=== PATIENT | male | born 1950 | race Caucasian/White ===

== ENCOUNTER 2021-11-14 14:47 | Emergency (ER) | payer MEDICARE, SELFPAY ==
[2021-11-14 15:50] VITALS: BP 196/82; PULSE 50; RESP 16; TEMP 36.7; O2SAT 98; BMI 25.7
--- NOTE | 2021-11-14 16:41 | ED_ITS ---
HPI - Male Genitourinary General: Chief complaint: Urogenital-Male Stated complaint: back/abd pain; bloody urine Time Seen by Provider: 11/14/21 15:58 Source: patient Mode of arrival: ambulatory Limitations: no limitations History of Present Illness: 71-year-old male presents to the emergency room with complaint of back pain abdominal pain bloody urine difficulty urinating for the last several days. Expect nearly 12 hours since he last urinated is complaining some flank pain and suprapubic discomfort. He has had dysuria and urgency as well denies any fever sweats or chills. Hematuria is been ongoing for the last couple of days. Onset (ago): day(s) Duration: constant Location: right flank and left flank Radiation: right inguinal region and left inguinal region Severity: moderate Quality: aching Relieving factors: none Exacerbating factors: none Associated symptoms: Reports dysuria and hematuria; Deny discharge, fevers/chills, nausea, rash, swelling, urinary incontinence, urinary retention, mass or vomiting Review of Systems Const: Denies: fever(s), chills, body aches, change in appetite, fatigue or malaise ENMT: Denies: throat pain, ear or mastoid pain, nasal discharge or nasal congestion Card: Denies: chest pain, palpitations, irregular heart rhythm, edema, dyspnea on exertion or orthopnea Resp: Denies: dyspnea, productive cough, non-productive cough or wheezing GI: Denies: nausea or vomiting : Reports: flank pain, difficulty urinating, dysuria, difficulty starting urination and hematuria; Denies: urinary incontinence Skin/Breast: Denies: rash or pruritus PFSH ED PFSH: Medical History (Updated 11/22/21 @ 18:13 by Jaswinder Arciniega DO) Atrial fibrillation COPD (chronic obstructive pulmonary disease) Hypertension Social History (Updated 11/22/21 @ 18:14 by Jaswinder Arciniega DO) Alcohol intake: unknown Physical Exam Const: GENERAL APPEARANCE: cooperative and comfortable ORIENTATION/CONSCIOUSNESS: Yes awake, Yes oriented to person, Yes oriented to place and Yes oriented to time HENMT: COMMON NORMALS: normocephalic, atraumatic and hearing grossly normal bilaterally HEAD & SCALP: normocephalic and atraumatic Neck/C-Spine: COMMON NORMALS: no JVD Resp: COMMON NORMALS: normal respiratory effort, No retractions, No use of accessory muscles and clear to auscultation bilaterally AUSCULTATION: clear to auscultation bilaterally Cardio: COMMON NORMALS: no JVD, regular rate, regular rhythm and No murmurs present (Cardio) RATE: regular rate RHYTHM: regular rhythm GI: COMMON NORMALS: Soft to palpation and No hepatosplenomegaly present AUSCULTATION: Yes normoactive bowel sounds PALPATION: Yes Soft to palpation, No Tenderness to palpation present (GI), No Guarding due to palpation present (GI) and Yes No hepatosplenomegaly present : BLADDER/KIDNEY EXAM: Yes CVA tenderness bilateral (Mild) Back/Pelvis: GENERAL BACK: Yes CVA tenderness Extremity: COMMON NORMALS: normal to inspection, capillary refill normal, no clubbing, cyanosis or edema, no calf tenderness and no pedal edema Neuro: SENSORIUM/ORIENTATION: Yes oriented to person, Yes oriented to place and Yes oriented to time Skin: COMMON NORMALS: no rashes or lesions noted GENERAL SKIN EXAM: no rashes or lesions noted Course Vital Signs: Vital signs: Vital Signs Temperature 98.1 F 11/14/21 15:50 Pulse Rate 54 L 11/14/21 18:20 Respiratory Rate 16 11/14/21 18:20 Blood Pressure 194/93 11/14/21 18:20 Pulse Oximetry 98 11/14/21 18:20 MDM - Male Medical Decision Making Prostatitis with hematuria started on Bactrim follow-up with urology. Hemoglobin normal. Medical Records I reviewed the patient's medical records. Lab Data I reviewed the patient's lab results. : 11/14/21 16:32 11/14/21 16:32 Laboratory Results WBC 7.5 10^3/uL (4.0-10.0) 11/14/21 16:32 RBC 4.89 10^6/uL (4.1-5.3) 11/14/21 16:32 Hgb 15.3 g/dL (11.7-16.6) 11/14/21 16:32 Hct 44.8 % (42.0-52.0) 11/14/21 16:32 MCV 91.6 fl (80-94) 11/14/21 16:32 MCH 31.3 pg (28.0-34.0) 11/14/21 16:32 MCHC 34.2 g/dL (30.0-36.0) 11/14/21 16:32 RDW 14.2 % (12.1-15.1) 11/14/21 16:32 Plt Count 220 10^3/cmm (130-400) 11/14/21 16:32 MPV 11.4 fL (7.4-10.4) H 11/14/21 16:32 Neut % (Auto) 75.3 % 11/14/21 16:32 Lymph % (Auto) 15.0 % 11/14/21 16:32 [place] % (Auto) 7.6 % 11/14/21 16:32 Eos % (Auto) 1.3 % 11/14/21 16:32 Baso % (Auto) 0.5 % 11/14/21 16:32 Neut # (Auto) 5.67 10^3/uL (1.8-7.7) 11/14/21 16:32 Lymph # (Auto) 1.1 10^3/uL (0.8-4.8) 11/14/21 16:32 [place] # (Auto) 0.6 10^3/uL (0.2-0.9) 11/14/21 16:32 Eos # (Auto) 0.1 10^3/uL (0.0-0.8) 11/14/21 16:32 Baso # (Auto) 0.0 10^3/uL (0.0-0.1) 11/14/21 16:32 Nucleated RBC % (auto) 0 % 11/14/21 16:32 Nucleated RBCs # 0.0 /100WBC 11/14/21 16:32 PT 13.10 SECONDS (12.1-14.9) 11/14/21 16:32 INR 0.96 (0.8-1.2) 11/14/21 16:32 APTT 33.4 SECONDS (23.9-36.7) 11/14/21 16:32 Sodium 138 mmol/L (136-145) 11/14/21 16:32 Potassium 4.2 mmol/L (3.5-5.1) 11/14/21 16:32 Chloride 101 mmol/L (98-107) 11/14/21 16:32 Carbon Dioxide 24 mmol/L (22-29) 11/14/21 16:32 Anion Gap 17.2 (5-19) 11/14/21 16:32 BUN 14 mg/dL (8-23) 11/14/21 16:32 Creatinine 0.9 mg/dL (0.7-1.2) 11/14/21 16:32 GFR Calculation 83.7 mL/min (90-130) L 11/14/21 16:32 Glucose 145 mg/dL (65-115) H 11/14/21 16:32 Calculated Osmolality 289 mOsm/kg (285-295) 11/14/21 16:32 Calcium 9.5 mg/dL (8.5-10.5) 11/14/21 16:32 Urine Color Dark yellow (Yellow) 11/14/21 17:15 Urine Appearance Cloudy (CLEAR) 11/14/21 17:15 Urine pH 5 (5-7) 11/14/21 17:15 Ur Specific [place] 1.015 (1.005-1.030) 11/14/21 17:15 Urine Protein 1+ (Negative) H 11/14/21 17:15 Urine Glucose (UA) Norm (Normal) 11/14/21 17:15 Urine Ketones Negative (Negative) 11/14/21 17:15 Urine Blood 3+ (Negative) H 11/14/21 17:15 Urine Nitrate Negative (Negative) 11/14/21 17:15 Urine Bilirubin Neg (Negative) 11/14/21 17:15 Urine Urobilinogen Norm mg/dL (Negative) 11/14/21 17:15 Ur Leukocyte Esterase Negative (Negative) 11/14/21 17:15 Urine RBC 25-40 /hpf (0-2) H 11/14/21 17:15 Urine WBC 0-4 /hpf (0-5) H 11/14/21 17:15 Ur Squamous Epith Cells 0-4 /hpf (0-5) H 11/14/21 17:15 Amorphous Sediment Not Reportable 11/14/21 17:15 Urine Bacteria 1+ /hpf (NONE) H 11/14/21 17:15 Urine Yeast 1+ /hpf H 11/14/21 17:15 Discharge Plan Discharge Patient Disposition: Home Clinical Impression: Hematuria, Acute prostatitis Condition: Stable Prescriptions: New Bactrim DS 800-160 mg tablet 1 tab PO DAILY 10 Days 0RF Flomax 0.4 mg capsule 0.4 mg PO DAILY Qty: 30 0RF Discharge Orders: Discharge ED (Routine); Ordered 11/14/21 Ordered By: Jaswinder Arciniega Discharge Diet: Usual diet Discharge Activity: Increase activity as tolerated Patient Instructions: Opioid Safety Activity Restrictions/Additional Instructions: Start Flomax 1 p.o. nightly we will also put you on oral antibiotics dairy farm manager will make arrangements for you to follow-up with Dr. Barn. Coding Level of Care Code ED Disc Pad Grinding Machine Feeder for Jostin Fwd Exam Comprehensive
[2021-11-14 16:48] LABS: Basophils % 0.5 %; Eosinophils # 0.1 10^3/uL (0.0-0.8); Eosinophils % 1.3 %; Hematocrit 44.8 % (42.0-52.0); Hemoglobin 15.3 g/dL (11.7-16.6); Lymphocytes # 1.1 10^3/uL (0.8-4.8); Mean Corpuscular HGB Conc 34.2 g/dL (30.0-36.0); Mean Corpuscular Hemoglobin 31.3 pg (28.0-34.0); Mean Corpuscular Volume 91.6 fl (80-94); Mean Platelet Volume 11.4 fL (7.4-10.4); Monocytes # 0.6 10^3/uL (0.2-0.9); Monocytes % 7.6 %; Neutrophils # 5.67 10^3/uL (1.8-7.7); Neutrophils % 75.3 %; Nucleated Red Blood Cells % 0 %; Platelet Count 220 10^3/cmm (130-400); Red Blood Count 4.89 10^6/uL (4.1-5.3); Red Cell Distribution Width 14.2 % (12.1-15.1); White Blood Count 7.5 10^3/uL (4.0-10.0)
[2021-11-14 17:04] LABS: INR 0.96 (0.8-1.2)
[2021-11-14 17:05] LABS: Partial Thromboplastin Time 33.4 SECONDS (23.9-36.7)
[2021-11-14 17:13] LABS: Anion Gap 17.2 (5-19); Blood Urea Nitrogen 14 mg/dL (8-23); Calcium 9.5 mg/dL (8.5-10.5); Carbon Dioxide 24 mmol/L (22-29); Chloride 101 mmol/L (98-107); Glomerular Filtration Rate 83.7 mL/min (90-130); Glucose 145 mg/dL (65-115); Osmolality Calculated 289 mOsm/kg (285-295); Potassium 4.2 mmol/L (3.5-5.1); Sodium 138 mmol/L (136-145)
[2021-11-14 17:39] LABS: Add Urine Microscopic? YES; Bacteria Urine 1+ /hpf; Bilirubin Urine Neg (Negative); Blood Urine 3+ (Negative); Glucose Urine UA Norm (Normal); Ketones Urine Negative (Negative); Leukocyte Esterase Urine Negative (Negative); Nitrate Urine Negative (Negative); Protein Urine 1+ (Negative); RBC Urine 25-40 /hpf (0-2); Specific Gravity, Urine 1.015 (1.005-1.030); Squamous Epithelial Cell Urine 0-4 /hpf (0-5); Urine Appearance Cloudy (CLEAR); Urine Color Dark Yellow (Yellow); Urobilinogen Urine Norm (Negative); WBC Urine 0-4 /hpf (0-5); pH Urine 5 (5-7)
[2021-11-14 17:40] LABS: Add Urine Culture? Yes
[2021-11-14 18:20] VITALS: BP 194/93; PULSE 54; RESP 16; O2SAT 98
--- NOTE | 2021-11-16 11:41 | DCPLANNER ---
Addendum entered by Deysi Padron 12/22/21 16:01: Patients appointment has been cancelled Original Note: increment manager had message to schedule a follow up appointment for patient with urology. increment manager sent patients information to the front office staff at urology. Patients information will be printed and reviewed. Clinic will call patient with appointment information.
== END 2021-11-14 18:22 | disposition home or self-care (01) ==
PROVIDERS: Physician Assistant; Emergency Provider Family Medicine
DX: N41.0 Acute prostatitis (principal); R31.9 Hematuria, unspecified; I48.91 Unspecified atrial fibrillation; I10 Essential (primary) hypertension
CPT/HCPCS: 51702; 80048; 81001; 85025; 85610; 85730; 87086; 99283